=== PATIENT | male | born 1970 | race Caucasian/White ===

== ENCOUNTER → 2021-05-28 03:49 | Outpatient (CLI) | payer BC, SELFPAY ==
[2021-05-28 19:11] LABS: SARS-CoV-2 RNA PCR Negative
== END ==
PROVIDERS: PCP Internal Medicine
DX: R68.89 Other general symptoms and signs (principal); Z20.822 Contact with and (suspected) exposure to COVID-19
CPT/HCPCS: C9803; U0003; U0005

== ENCOUNTER 2021-06-14 13:05 | Emergency (ER) | payer BC, SELFPAY ==
--- NOTE | ~2021-06-14 | US_ITS ---
US venous doppler LE RT DATE: 06/14/2021 14:19 INDICATION: Post surgical right leg pain TECHNIQUE: Real-time and color flow imaging and Doppler analysis of the veins of the right lower extr emity COMPARISON: None FINDINGS: The right greater saphenous vein is patent. There is spontaneous and phasic flow and normal augmentation and color flow signal and normal compression of the right common femoral, deep femoral, femoral and popliteal veins. Thrombus is identified within the posterior tibial and peroneal veins, with lack of compression, cons istent with deep venous thrombosis. IMPRESSION: Deep venous thrombosis of right posterior tibial and peroneal veins Reviewed, dictated and finalized at Location A. Reviewed, dictated and finalized at location B. UTER SYSTEMS HARDWARE ANALYST
[2021-06-14 13:08] VITALS: BP 156/86; PULSE 71; RESP 20; TEMP 36.1; O2SAT 98
[2021-06-14 15:16] VITALS: BP 147/89; PULSE 75; RESP 19; O2SAT 99
--- NOTE | 2021-06-14 16:25 | ED.GENADULT ---
HPI - General Adult General Chief complaint: Extremity Problem,Nontraumatic <Ligia Perez PA-C - Last Filed: 06/14/21 16:33> Stated complaint: leg pain <Ligia Perez PA-C - Last Filed: 06/14/21 16:33> Time Seen by Provider: 06/14/21 13:24 <Ligia Perez PA-C - Last Filed: 06/14/21 16:33> Source: patient <AUSTEN Elder Last Filed: 06/14/21 16:33> Mode of arrival: ambulatory <AUSTEN Elder Last Filed: 06/14/21 16:33> Limitations: no limitations <AUSTEN Elder Last Filed: 06/14/21 16:33> History of Present Illness HPI narrative: Patient is a 50-year-old male with chief complaint of 2 days of increased swelling and erythema to the right leg. Patient reports that he had a spinal fusion performed on 05-31-21. He states that he is on pain medications for his back surgery so he does not notice a tremendous amount of pain to right leg. He denies any shortness of breath, chest pain, syncope, or any other symptoms. He denies prior history of DVT or PE. He is not currently on any anticougulants. <Ligia Perez PA-C - Last Filed: 06/14/21 16:33> Related Data Allergies/adverse reactions: Allergies Allergy/AdvReac Type Severity Reaction Status Date / Time vancomycin Allergy Severe Flushing Verified 06/14/21 13:17 <Ligia Perez PA-C - Last Filed: 06/14/21 16:33> Review of Systems Review of Systems: CONSTITUTIONAL: Denies fever, chills, or sweats. EYES: Denies visual changes, redness, or discharge. ENT: Denies rhinorrhea, congestion, sore throat, or otalgia. CARDIOVASCULAR: Denies chest pain, palpitations, or edema. RESPIRATORY: Denies cough or dyspnea. GASTROINTESTINAL: Denies abdominal pain, nausea, vomiting, or diarrhea. GENITOURINARY: Denies dysuria or hematuria. SKIN: Denies rash or itching. MUSCULOSKELETAL: Reports right leg swelling denies back pain, joint pain, or myalgia. NEUROLOGIC: Denies headache, numbness, dizziness, or weakness. PSYCHIATRIC: Denies anxiety or depression. <Ligia Perez PA-C - Last Filed: 06/14/21 16:33> PMFSH Family History Family History: Family History Mother Family history of suicide Father Patient's father is in good health <Ligia Perez PA-C - Last Filed: 06/14/21 16:33> Social History Social History: Social History Smoking status: Never smoker Tobacco type: cigarettes Second hand tobacco smoke exposure: Yes Alcohol intake: current Alcohol use details: Social <Ligia Perez PA-C - Last Filed: 06/14/21 16:33> Exam Narrative: GENERAL: Well-appearing, well-nourished. HEAD: Normocephalic, atraumatic. EYES: PERRLA and EOMI. NECK: Supple. No adenopathy or masses. No vertebral tenderness or loss of ROM. CHEST: Clear to auscultation. No respiratory distress. No wheezes rales or rhonchi HEART: Regular rate and rhythm. Normal peripheral pulses. EXTREMITIES: Swelling and erythema to right calf with tightness- suspect DVT. Patient ROM intact. Pulses intact. SKIN: Warm, dry, no rash. NEURO: No focal deficits. Alert and oriented x3. PSYCH: Normal mood and affect. <Ligia Perez PA-C - Last Filed: 06/14/21 16:33> Course Vital Signs Vital signs: Vital Signs Temperature 96.9 F L 06/14/21 13:08 Pulse Rate 71 06/14/21 13:08 Respiratory Rate 20 06/14/21 13:08 Blood Pressure 156/86 H 06/14/21 13:08 Pulse Oximetry 98 06/14/21 13:08 Temperature 96.9 F L 06/14/21 13:08 Pulse Rate 75 06/14/21 15:16 Respiratory Rate 19 06/14/21 15:16 Blood Pressure 147/89 H 12/23/21 15:16 Pulse Oximetry 99 06/14/21 15:16 <Ligia Perez PA-C - Last Filed: 06/14/21 16:33> Medical Decision Making MDM Narrative Medical decision making narrative: Patient has a DVT noted on Doppler. Consult with Dr. Peng patient's PCP to to inform him of p
== END 2021-06-14 16:10 | disposition home or self-care (01) ==
PROVIDERS: Emergency Provider General Practice; PCP Internal Medicine
DX: I82.451 Acute embolism and thrombosis of right peroneal vein (principal); I82.441 Acute embolism and thrombosis of right tibial vein; Z98.890 Other specified postprocedural states; Z77.22 Contact with and (suspected) exposure to environmental tobacco smoke (acute) (chronic); Z98.1 Arthrodesis status
CPT/HCPCS: 93971; 99284

== ENCOUNTER → 2021-08-04 10:13 | Outpatient (CLI) | payer BC, SELFPAY ==
--- NOTE | ~2021-08-04 | US_ITS ---
EXAMINATION: US venous doppler LE RT DATE: 08/04/2021 10:46 INDICATION: Right lower limb swelling. Acute embolism and thrombosis of unspecified deep vein. TECHNIQUE: Grayscale ultrasound images without and with compression and Doppler ultrasound images of the right lower extremity veins were obtained. COMPARISON: Ultrasound 06/14/2021 FINDINGS: The visualized portions of right common femoral vein, profunda (deep) femoral vein, femoral vein, pop liteal vein, and greater saphenous vein outflow are patent. There is thrombus in right posterior tibi al and peroneal veins. IMPRESSION: 1. Deep vein thrombosis again seen involving right posterior tibial and peroneal veins. Reviewed, dictated and finalized at location E. ER WAX BALL IMPRESSION: 1. Deep vein thrombosis again seen involving right posterior tibial and perone al veins.
== END ==
PROVIDERS: PCP Internal Medicine; Visit Provider Nurse Practitioner
DX: I82.401 Acute embolism and thrombosis of unspecified deep veins of right lower extremity (principal)
CPT/HCPCS: 93971

== ENCOUNTER → 2021-09-19 08:02 | Outpatient (CLI) | payer BC, SELFPAY ==
[2021-09-19 12:52] LABS: Influenza A QL RT-PCR Negative (Negative); Influenza B QL RT-PCR Negative (Negative); SARS-CoV-2 RNA PCR Negative
== END ==
PROVIDERS: PCP Internal Medicine; Visit Provider Internal Medicine
DX: R68.89 Other general symptoms and signs (principal); Z20.822 Contact with and (suspected) exposure to COVID-19
CPT/HCPCS: 87502; C9803; U0003; U0005

== ENCOUNTER → 2021-10-27 07:21 | Outpatient (CLI) | payer BC, SELFPAY ==
--- NOTE | ~2021-10-27 | US_ITS ---
EXAMINATION: US venous doppler LE RT DATE: 10/27/2021 07:58 INDICATION: Acute embolism and thrombosis of unspecified deep vein TECHNIQUE: Reardon scale images without and with compression and Doppler images of the right lower extre mity veins were obtained. COMPARISON: 08/04/2021 FINDINGS: There is chronic thrombosis of the posterior tibial vein The right common femoral vein, pro miguelina femoral vein, femoral vein, popliteal vein, peroneal trunk, and greater saphenous vein are hair nt. IMPRESSION: 1. 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 Reviewed, dictated and finalized at location A. IMPRESSION: 1. Chronic thrombosis of the posterior tibial vein, otherwise patent right lowe r extremity veins.
== END ==
PROVIDERS: PCP Internal Medicine; Visit Provider Internal Medicine
DX: I82.541 Chronic embolism and thrombosis of right tibial vein (principal)
CPT/HCPCS: 93971

== ENCOUNTER 2021-12-21 00:40 | Day surgery (SDC) | payer BC, SELFPAY ==
[2021-12-14 15:53] VITALS: BMI 25.3
[2021-12-21 10:34] VITALS: BP 150/67; PULSE 56; RESP 16; TEMP 36.4; O2SAT 98; BMI 25.8
--- NOTE | 2021-12-21 10:38 | PM.HPGS ---
History of Present Illness History of Present Illness Consent: Risks, benefits, and alternatives have been discussed and questions answered. Patient agrees to proceed with procedure. Chief complaint: GERD, Crohns Disease Narrative: Joey Mejia is a 51 year old male with h/o Crohn's [place] [address] Bhatti with normal TI, bx showed colitis possible ischemic but on delzicol, sometimes with diarrhea but no recent change. Also GERD on protonix. Last colonoscopy in 2004 Review of Systems Constitutional: Constitutional: Denies headache(s) and Denies weakness Eyes: Eyes: Denies blurry vision ENT: Reports Normal hearing present, Denies headache(s) and Denies neck pain Cardiovascular: Cardiovascular: Denies chest pain and Denies dyspnea Respiratory: Respiratory: Denies dyspnea Gastrointestinal: Gastrointestinal: Reports no additional gastrointestinal complaints Genitourinary: Genitourinary: Denies dysuria Musculoskeletal: Musculoskeletal: Denies neck pain Integumentary/Breasts: Skin/Breast: Denies dry skin Neurologic: Reports Normal hearing present, Denies headache(s) and Denies weakness Psychiatric: Psychiatric: Denies anxiety Endocrine: Endocrine: Denies change in body appearance Hematologic/Lymphatic: Hematologic/Lymphatic: Denies easy bleeding Allergic/Immunologic: Allergic/Immunologic: Denies urticaria PMFSH Surgical History Surgical History (Updated 10/02/21 @ 14:01 by Karla Borden) H/O Spinal surgery (~2004) Tumor removed from the spine. Previous back surgery fusion of the back Family History Family History Mother Family history of suicide Father Patient's father is in good health Social History Social History Smoking status: Never smoker Tobacco type: cigarettes Second hand tobacco smoke exposure: Yes Alcohol intake: current Alcohol use details: Social Substance use: never Substance use type: does not use Living arrangements: with family Spiritual care concerns: No Meds Home Medications and Allergies Home Medications Medication Instructions Recorded Confirmed Type mometasone 0.1 % topical cream 1 applic topical DAILY #45 grams 01/22/21 12/21/21 Rx mesalamine 400 mg capsule (with 1,200 mg PO BID #540 ea 08/13/21 12/21/21 Rx delayed release tablets inside) (Delzicol) pantoprazole 40 mg tablet,delayed 40 mg PO BID #180 tabs 10/19/21 12/21/21 Rx release rivaroxaban 20 mg tablet (Xarelto) 20 mg PO DAILY #30 tabs 10/30/21 12/21/21 Rx epinephrine 0.3 mg/0.3 mL 0.3 mg IM ONCE PRN Allergic 12/14/21 12/21/21 History injection, auto-injector (EpiPen) Reaction Allergies Allergy/AdvReac Type Severity Reaction Status Date / Time cayenne Allergy Severe Hives Verified 12/21/21 10:32 Poultry Allergy Severe Hives Verified 12/21/21 10:32 Vital Signs Vital Signs - 24 hr 12/21/21 10:34 Temperature 97.6 F Pulse Rate 56 L Respiratory Rate 16 Blood Pressure 150/67 H Pulse Oximetry 98 Oxygen Delivery Room Air Exam Const: General: comfortable and no acute distress HENMT: General nose exam: Normal nares present Eyes: General: appearance normal, both eyes and all related structures Neck: Neck: no JVD Resp: Auscultation: clear to auscultation bilaterally Cardio: Rate: regular rate Rhythm: regular rhythm GI: Inspection: non-distended GI Palp: Yes Soft to palpation Skin: General skin exam: normal color Neuro: General: gait normal Speech: normal speech Extrem: General: normal to inspection Psych: Mental Status: mental status grossly normal Assessment and Plan Assessment and plan (1) Crohn's disease of large intestine with complication: Code(s): K50.119 - Crohn's disease of large intestine with unspecified complications Status: Acute Assessment and Plan: colonoscopy with bx on mesal
--- NOTE | 2021-12-21 10:41 | P.PNAN_ITS ---
Anes - Initial Pre Proc Eval Procedure: Operation Date: 12/21/21 12:30 Proposed Procedures p Esophagogastroduodenoscopy & Colonoscopy - Garcia Muñoz MD Date/Time: 12/21/21 10:41 Surgeon: Garcia Muñoz MD Pre Op Diagnosis: GERD, Crohns Disease Patient Data Age: 51 Gender: M Height: 1.65 m Weight: 70.4 kg Last Vital Signs Temp 97.6 F 12/21/21 10:34 Pulse 56 L 12/21/21 10:34 Resp 16 12/21/21 10:34 BP 150/67 H 12/21/21 10:34 Pulse Ox 98 12/21/21 10:34 O2 Del Method Room Air 12/21/21 10:34 Allergies Allergy/AdvReac Type Severity Reaction Status Date / Time cayenne Allergy Severe Hives Verified 12/21/21 10:32 Poultry Allergy Severe Hives Verified 12/21/21 10:32 Home Medications Medication Instructions Recorded Confirmed Type mometasone 0.1 % topical cream 1 applic topical DAILY #45 grams 01/22/21 12/21/21 Rx mesalamine 400 mg capsule (with 1,200 mg PO BID #540 ea 08/13/21 12/21/21 Rx delayed release tablets inside) (Delzicol) pantoprazole 40 mg tablet,delayed 40 mg PO BID #180 tabs 10/19/21 12/21/21 Rx release rivaroxaban 20 mg tablet (Xarelto) 20 mg PO DAILY #30 tabs 10/30/21 12/21/21 Rx epinephrine 0.3 mg/0.3 mL 0.3 mg IM ONCE PRN Allergic 12/14/21 12/21/21 History injection, auto-injector (EpiPen) Reaction Patient hx anesthesia problems: none Family hx anesthesia problems: none Results Review: All pre-operative results and documents have been reviewed as part of the pre- operative evaluation. 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 Previous back surgery fusion of the back Family History Family History Mother Family history of suicide Father Patient's father is in good health Social History Social History Smoking status: Never smoker Tobacco type: cigarettes Second hand tobacco smoke exposure: Yes Alcohol intake: current Alcohol use details: Social Substance use: never Substance use type: does not use Living arrangements: with family Spiritual care concerns: No Anes - Eval Final PreProcedure Day of Procedure 12/21/21 10:41 Patient weight: normal Heart: regular rate and rhythm Lungs: clear to auscultation Airway: Mallampati scale class II Neurological: alert and oriented Last oral intake: >/= 8 hours ASA classification: II Emergent: no Anesthetic plan: proceed Anesthesia type and monitoring: general GIVS and standard monitoring Results Review: All pre-operative results and documents have been reviewed as part of the pre- operative evaluation. Informed Consent: The patient's anesthetic plan and its attendant risks and benefits were discussed with the patient/family/POA. Questions were solicited and answers provided to the satisfaction of the patient/family/POA.
[2021-12-21] MEDS: LACTATED RINGERS 1,000 ML 150 ML IV CONT (10:43)
[2021-12-21 11:14] VITALS: BP 132/80; PULSE 50; RESP 17; O2SAT 100
[2021-12-21 11:24] VITALS: BP 142/92; PULSE 56; RESP 17; O2SAT 100
[2021-12-21 11:34] VITALS: BP 143/93; PULSE 54; RESP 14; O2SAT 100
== END 2021-12-21 11:42 | disposition home or self-care (01) ==
PROVIDERS: PCP Internal Medicine; Visit Provider Internal Medicine Gastroenterology
PROC: 0DJ08ZZ Inspection of Upper Intestinal Tract, Via Natural or Artificial Opening Endoscopic (ICD-10-PCS; CPT 43235; principal; 2021-12-21 12:30)
DX: Z12.11 Encounter for screening for malignant neoplasm of colon (principal); D12.5 Benign neoplasm of sigmoid colon; K50.119 Crohn's disease of large intestine with unspecified complications; K64.8 Other hemorrhoids; K57.30 Diverticulosis of large intestine without perforation or abscess without bleeding; K21.9 Gastro-esophageal reflux disease without esophagitis; Z79.82 Long term (current) use of aspirin; Z98.1 Arthrodesis status
CPT/HCPCS: 45385; 45380; 43239; 88305; J2001; J2704; J7120

== ENCOUNTER 2022-02-09 07:35 | Outpatient (CLI) | payer BC, SELFPAY ==
--- NOTE | ~2022-02-09 | MR_ITS ---
EXAMINATION: MR hip RT wo con DATE: 02/09/2022 08:27 INDICATION: Right hip pain. TECHNIQUE: Magnetic resonance imaging (MRI) of the right hip was performed without intravenous contra st. COMPARISON: Right hip radiographs 10/24/21 FINDINGS: Bones/cartilage: There are changes of anterior and posterior fusion procedures in lumbar spine. There is decreased fem oral head/neck offset bilaterally, which may be seen with femoral acetabular impingement. Small field -of-view images of right hip demonstrate partial-thickness cartilage loss superiorly. Labrum: There is a tear of the right acetabular labrum. Fluid: There is no hip joint effusion. There is mild bilateral trochanteric bursitis. Soft tissues: There is mild bilateral gluteus minimus tendinopathy. The gluteus medius tendons are normal. There is mild tendinopathy of the hamstring origins. The iliopsoas tendons are normal. There is a right ingui nal hernia containing fat. The prostate is mildly enlarged. IMPRESSION: 1. Mild right hip chondrosis. 2. Tear of right acetabular labrum. 3. Right inguinal hernia containing fat. Reviewed, dictated and finalized at location A.
== END 2022-02-09 07:36 | disposition home or self-care (01) ==
PROVIDERS: PCP Internal Medicine; Visit Provider Orthopaedic Surgery
DX: M70.61 Trochanteric bursitis, right hip (principal); K40.90 Unilateral inguinal hernia, without obstruction or gangrene, not specified as recurrent; S73.191A Other sprain of right hip, initial encounter; X58.XXXA Exposure to other specified factors, initial encounter
CPT/HCPCS: 73721

== ENCOUNTER 2022-05-20 16:06 | Outpatient (CLI) | payer BC, SELFPAY ==
--- NOTE | ~2022-05-20 | US_ITS ---
EXAMINATION:US venous doppler LE RT INDICATION:Follow-up DVT seen on prior study. TECHNIQUE: Multiple grayscale, color flow and Doppler images of the right lower extremity deep venous systems were obtained and reviewed. COMPARISON:Ultrasound dated 10/27/2021 FINDINGS: The common femoral, superficial femoral and popliteal veins demonstrate normal respiratory variation, augmentation and compressibility. Color flow is also seen within the posterior tibial, pe roneal, greater saphenous and profunda veins. IMPRESSION: 1: No lower extremity deep venous thrombosis. Reviewed, dictated and finalized at location A. ANALYST
== END 2022-05-20 16:07 | disposition home or self-care (01) ==
LOC: ANHIMG 16:11
PROVIDERS: PCP Internal Medicine; Visit Provider Internal Medicine
DX: I82.401 Acute embolism and thrombosis of unspecified deep veins of right lower extremity (principal)
CPT/HCPCS: 93971

== ENCOUNTER 2024-02-26 12:22 | Outpatient (CLI) | payer OTHER, SELFPAY ==
--- NOTE | ~2024-02-26 | XR_ITS ---
EXAMINATION: XR abdomen/kub 1V DATE: 02/26/2024 12:38 INDICATION: Bilateral abdominal pain. TECHNIQUE: A supine view of the abdomen on 2 radiographs was obtained. COMPARISON: Abdomen radiographs 02/05/19 FINDINGS: There are no dilated loops of bowel. There are phleboliths in the pelvis. There are changes of anterior and posterior fusion procedures in lumbosacral spine. IMPRESSION: 1. No visible urolithiasis. Reviewed, dictated and finalized at location A. IMPRESSION: 1. No visible urolithiasis.
== END 2024-02-26 12:23 | disposition home or self-care (01) ==
PROVIDERS: PCP Nurse Practitioner Family; Visit Provider Nurse Practitioner Family
DX: R10.9 Unspecified abdominal pain (principal); Z87.442 Personal history of urinary calculi
CPT/HCPCS: 74018

== ENCOUNTER 2024-12-10 12:45 | Outpatient (CLI) | payer OTHER, SELFPAY ==
--- NOTE | ~2024-12-10 | US_ITS ---
Limited Abdominal Sonogram: Real-time sonographic imaging of the right upper quadrant was performed. Clinical History: Abnormal liver enzyme levels Findings: The liver appears echogenic, with no evidence of mass lesion or bile duct dilatation. Main portal vein demonstrates normal direction of flow. The gallbladder is well distended, and appears no rmal with no evidence of gallstone or wall thickening. The common bile duct measures 3 mm. The visua lized pancreas, aorta, and IVC are unremarkable. Right kidney unremarkable. Impression: Diffuse fatty infiltration of the liver. Reviewed, dictated and finalized at location M. Impression: Diffuse fatty infiltration of the liver.
== END 2024-12-10 12:46 | disposition home or self-care (01) ==
LOC: MICIMG 12:47
PROVIDERS: PCP Nurse Practitioner Family; Visit Provider Nurse Practitioner Family
DX: R74.01 Elevation of levels of liver transaminase levels (principal); K76.0 Fatty (change of) liver, not elsewhere classified
CPT/HCPCS: 76705

== ENCOUNTER 2025-05-18 09:43 | Outpatient (CLI) | payer OTHER, SELFPAY ==
--- OUTSIDE RECORDS SUMMARY | 2024-04-27 05:00 | XMS_ITS | Continuity of Care Document ---
Author Organization [facility] [facility] Address [address] [place] [address] Phone Care Team Providers Care Planning Intern Name Role Phone Mona ZAMORA, Robb Unavailable Unavailable Procedures Procedure Date LUMBAR SPINE CT W/O CONTRAST INJ PARAVERT F JNT L/S 1 LEV SURGICAL TRAY Triamcinolone Acetonide Injection, 10mg INJECTION ANESTHETIC AND/OR STERIOD, TRANS EPIDURAL LUMB OR SACRAL,, SINGLE LEVE SURGICAL TRAY LOW OSMOLAR CONTRAST (200 TO 299 MG IODI NE) Triamcinolone Acetonide Injection, 10mg LUMBAR SPINE CT W/O CONTRAST MRI OF NECK, SPINE W/O CONTRAST MRI, LUMBAR SPINE W/O CONTRAST 24 MRI OF NECK, SPINE W/O CONTRAST 022 INJ FOR DISKOGRAPHY, EACH LEVEL; LUMBAR DISKOGRAPHY, LUMBAR, RADIOLOGICAL SUPERV ISION AND INTERPRETATION SURGICAL TRAY LOW OSMOLAR CONTRAST (200 TO 299 MG IODI NE) MRI, LUMBAR SPINE W/O CONTRAST 21 INJ PARAVERT F JNT L/S 1 LEV SURGICAL TRAY DEPO-MEDROL 80MG INJECTION ANESTHETIC AND/OR STERIOD, TRANS EPIDURAL LUMB OR SACRAL,, SINGLE LEVE Mar-31-2021 SURGICAL TRAY LOW OSMOLAR CONTRAST (200 TO 299 MG IODI NE) DEPO-MEDROL 80MG MRI, LUMBAR SPINE W/O CONTRAST LUMBAR SPINE CT W/O CONTRAST INJECTION ANESTHETIC AND/OR STERIOD, TRANS EPIDURAL LUMB OR SACRAL,, SINGLE LEVE SURGICAL TRAY LOW OSMOLAR CONTRAST (200 TO 299 MG IODI NE) DEPO-MEDROL 80MG Advance Directives Directive Yes / No Effective Date File Name No Information Encounters Encounter Description Practice Location Reason(s) For Visit Diagnoses Date Provider Providers Copied on Encounter [facility], [address] [facility], [place], [place], [id number], tel:[phone] [facility] No Information Mona Zamudio. [address] , [place], [place], [id number], [place]. tel:[phone] Referring Provider: Zheng Acevedo, [facility] [facility] [address], [address], [place], [address]. tel:[phone] [facility], [address] [facility], [place], [place], [id number], [place] tel:[phone] [facility] No Information Nancy Griffin. [address] [place], [place], [id number], [place]. tel:[phone] Referring Provider: Raheem Desai, [facility], [place], [address]. tel:[phone] [facility], [address] [facility], [place], [place], [id number], [place] tel:[phone] [facility] No Information Lily Martin. [address] , [place], [place], [id number], [place]. tel:[phone] Referring Provider: [address], [place], [address]. tel:[phone] [facility], [address] [facility], [place], [place], [id number], [place] tel:[phone] [facility] No Information Per Zamudio. [address] [facility], [place], [place], [id number], [place]. tel:[phone] Referring Provider: Raheem Desai, [address], [place], [address]. tel:[phone] [facility], [address] [facility], [place], [place], [id number], [place] tel:[phone] [facility] No Information Lily Martin. [address], [place], [id number], [place]. tel:[phone] Referring Provider: Raheem Desai, [address], [place], [address]. tel:[phone] [facility], [address] [place] [address], [id number], tel:[phone] [facility] No Information Jean-Pierre Timmons. [address], [place], [id number], [place]. tel:[phone] Referring Provider: [address], [place], [address]. tel:[phone] [facility], [address] [place] [address], [id number], [place] tel:[phone] [facility] No Information Nancy Florence [address] [place], [place], [id number], [place]. tel:[phone] Referring Provider: [address], [place], [address]. tel:[phone] [facility], [address] [place] [address], [id number], [place] tel:[phone] [facility] No Information Jean-Pierre Timmons. [address], [place], [id number], [place]. tel:[phone] Referring Provider: [address], [place], [address]. tel:[phone] [facility], [address] [place] [address], [id number], tel:[phone] [facility] No Information Lily Martin. [address], [place], [id number], . tel:[phone] Referring Provider: Raheem Desai, [address], [place], [place], [facility]. tel:[phone] [facility], [address] [place] [address], [id number], tel:[phone] [facility] No Information Jean-Pierre Timmons. [address], [place], [id number], . tel:[phone] Referring Provider: [address], [place], [place], [facility]. tel:[phone] [facility], [address] [place] [address], [id number], tel:[phone] [facility] No Information Nancy Griffin. [address] [place], [place], [address] [place] [address], . tel:[phone] Referring Provider: [address], [place], [facility]. tel:[phone] [employer] [facility], [address] [place] [address], [id number], tel:[phone] [facility] No Information Per Zamudio. [address] [place], [place], [id number], . tel:[phone] Referring Provider: [address], [place], [place], [facility]. tel:[phone] Family History Family Member Type Diagnosis Age At Onset No Information Payers Payer name Insurance type Covered republican ID Authoriza tieverton(s) [facility] [id number] Social History Type Description Quantity Date Captured Comments Sex Male Smoking Status No Information Chief Complaint And Reason For Visit No Information Reason For Referral Reason For Referral No Information History Of Present Illness Encounter Date Complaint History Of Prese nt Illness No Information Functional Status Date Functional Assessmen t No Information Instructions Date Instruction Additional Infor mation No Information Assessments Type Assessment Date No Information Patient Care Teams Name Effective Dates (start - stop) Status Members No Information
--- NOTE | 2025-05-18 10:03 | ECG_ITS ---
Test Date: 2025-05-18 10:20:10 Measurements Intervals [place] Rate: 50 P: 55 CA: 147 QRS: 29 QRSD: 73 T: 53 QT: 436 QTc: 398 Interpretive Statements SINUS BRADYCARDIA No previous ECG available for comparison Electronically Signed On 05-18-2025 13:40:07 FACILITY MAINTENANCE TECHNICIAN by Joe Lobo M.D.
--- OUTSIDE RECORDS SUMMARY | 2025-05-18 10:20 | XMS_ITS | Clinical Summary ---
Author Organization [facility] Address [address] [place] [address] Care Team Providers Care Aquatics Instructor Name Role Phone Gisele Nava NP Primary Care Provider [phone] Allergies Active Allergy Reactions Criticality Noted Date Comments 1 Alpha-Gal Unknown Dairy Tolerance (Ubshsascc-Ocrva-4,3-Galact ose) Rash Medium 04/16/2022 Throat swelling (red man) Vancomycin Unknown 08/23/[address] (PROTONIX) 40 mg EC tablet 04/01/2022 Active EPINEPHrine 0.3 mg/0.3 mL auto-injection syringe INJ 0.3 ML IM ONCE 01/21/2020 Active lisinopriL (PRINIVIL,ZESTRI L) 10 mg tablet 2023 Act abbey meloxicam (MOBIC) 15 mg tablet 01/21/2023 Active mesalamine (APRISO) 0.375 gram 24 hr capsule 2023 Active methocarbamoL (ROBAXIN) 750 mg tabletIndication s:Pseudarthrosis after fusion or arthrodesis Take 1 tablet (750 mg total) by mouth 3 (three) times a day as needed for muscle spasms 90 tablet 11/24/2023 Active Active Problems Problem Noted Date Diagnosed Date Degeneration of cervical intervertebral disc 08/2013 Immunizations Immunization Administration Dates Next Due Influenza, Quadrivalent, Janine l Culture-based MDCK, Preservative Free, Antibiotic Free, Intramuscular 04/16/2017 Influenza, Trivalent, IM (MDV) 04/11/2013 Tdap 12/03/2013,12/09/2008 ZOSTER Recombinant 01/29/2022,11/30/2021 Surgical History Surgery Date Site/Laterality Comments TUMOR REMOVAL 12/20/2004 Schwannoma removal SPINE SURGERY 12/05/2017 Herniated disc surgery SPINAL FUSION 06/03/2019 Bilateral L4-L5 fusion, fusion below L4 on 05/31/2021 FLUORO GUIDED INJECTION HIP RIGHT 04/30/2022 Right Medical History Medical History Date Comments Blood clot in vein Deep vein thrombosis (HCC) Inflammatory bowel disease Kidney stone Gastric reflux Hypertension Rectal bleeding Family History Medical History Relation Name Comments Cancer Brother Kidney disease Brother Cancer Father Heart disease Father Stroke Paternal Grandfather Cancer Sister Relation Name Status Comments Brother Father Paternal Grandfather Sister Social History Tobacco Use Types Packs/Day Years Used Date Smoking Tobacco: Never Smokeless Tobacco: Never Tobacco Cessation:Counseling Given: No AUDIT-C Answer Date Recorded Q1: How often do you have a drink containing alc ohol? Monthly or less 11/24/2023 Q2: How many drinks containi ng alcohol do you have on a typical day when you are drinking? 1 or 2 11/24/2023 Q3: How often do you have si x or more drinks on one occasion? Never 11/24/2023 Sex and Gender Information Value Date Recorded Sex Assigned at Not on file Legal Sex Male 2:09 PM CDT Gender Identity Male 11/18/2023 3:31 PM CDT Sexual Orientation Not on file Occupation Industry Job Start Date Job End Date Teacher Not on file Not on file Not on file Last Filed Vital Signs Vital Sign Reading Time Taken Comments Blood Pressure 182/99 11/24/2023 9:15 AM CDT Pulse 51 11/24/2023 9:15 AM CDT Temperature - - Respiratory Rate - - Oxygen Saturation - - Inhaled Oxygen Concentration - - Weight 73.5 kg (162 lb) 11/24/2023 9:15 AM CDT Height 165.1 cm (5' 5) 11/24/2023 9:15 AM CDT Body Mass Index 26.96 11/24/2023 9:15 AM CDT Plan of Treatment Health Maintenance Due Date Last Done Comments Colon Cancer Screening-Colonoscopy 1971 Depression Screening 1971 Hepatitis C Screening 1971 Prostate Cancer Screening-PSA 1971 Hepatitis B Screening 1989 Regular Well Visit/Exam 18-64 1989 DTaP/Tdap/Td Vaccine (3 - Td or Tdap) 12/04/2023 12/03/2013, 12/09/2008 Covid-19 Vaccine (4 - 2024-2 6 season) 2025 08/24/2021, 09/02/2020, 08/12/2020 Influenza Vaccine (#1) 2025 7, 04/11/2013 Zoster Vaccine Completed 01/29/2022, 11/30/2021 Pneumococcal vaccine <65 Aged Out No longer eligible based on patient's age to complete this topic Insurance [facility] CHO[facility] PLUS [facility] CHO[facility] PLUS Care Teams Aquatics Instructor Relationship Specialty Start Date End Date WinterGisele NP [address] [address] [address] PCP - General Nurse Practitioner 11/24/23
--- OUTSIDE RECORDS SUMMARY | 2025-05-18 10:20 | XMS_ITS | Clinical Summary ---
Author Organization [facility] Address [address] [place] [id number] Care Team Providers Care Eyeglass Lens Cutter Name Role Phone Raheem Denton MD Primary Care Provider [phone] Social History Tobacco Use Types Packs/Day Years Used Date Smoking Tobacco: Never Assessed Sex and Gender Information Value Date Recorded Sex Assigned at Not on file Legal Sex Male 8:17 PM CDT Gender Identity Not on file Sexual Orientation Not on file Plan of Treatment Health Maintenance Due Date Last Done Comments Colorectal Cancer Screening Colonoscopy (10 Years) 1971 Annual Physical 1974 Hepatitis C 1989 DTaP, Tdap and Td Vaccines ( 1 - Tdap) 1990 Hepatitis B Vaccines (1 of 3 - 19+ 3-dose series) 1990 Pneumococcal Vaccine: 50+ Ye ars (1 of 1 - PCV) 2021 Zoster Vaccines (1 of 2) 2021 COVID-19 Vaccine (1 - 2024-2 6 season) 2025 Influenza Adult (#1) 2025 Hepatitis A Vaccines Aged Out No long er eligible based on patient's age to complete this topic Meningococcal B Vaccine Aged Out No l onger eligible based on patient's age to complete this topic Meningococcal Vaccine Aged Out No nayan dee dee eligible based on patient's age to complete this topic RSV Immunizations Under 20 Months Aged Out No longer eligible based on patient's age to complete this topic Care Teams Eyeglass Lens Cutter Relationship Specialty Start Date End Date Raheem Denton MD [address] [facility] [address] [place] [id number] PCP - General 06/29/10
--- OUTSIDE RECORDS SUMMARY | 2025-05-18 10:20 | XMS_ITS | Clinical Summary ---
Author Organization [facility] [employer] Address [address] [place] [address] Care Team Providers Care Commercial Maintenance Technician Name Role Phone Unavailable Primary Care Provider Unavailabl e Source Comments [facility],non-owned Affiliates and Associated Physician Practices is amultiple site organization consisting of ambulatory clinics and hospital sitesin [place], [place], [place] and [place]. This disclosure is being madepursuant to the Care Everywhere program and may not contain all information available regarding this patient. Last updated 18.[facility] [employer] Allergies Active Allergy Reactions Criticality Noted Date Comments Vancomycin 08/23/2013 Medications * Be aware that medications may not be up to date on this document. Alwaysverify current medications with the patient. Esomeprazole Magnesium (NEXIUM PO) Active Mesalamine (DELZICOL PO) Active EPINEPHrine (EPIPEN) 0.3 MG/0.3ML auto-injector pen INJ 0.3 ML IM ONCE 01/21/2020 Active esomeprazole (NEXIUM) 40 MG capsule 09/22/[address] (DELZICOL) 400 MG capsule Take 1,200 mg by mouth 2 times daily 11/30/2020 Active Active Problems Problem Noted Date Diagnosed Date Degeneration of cervical intervertebral disc 08/2013 Social History Tobacco Use Types Packs/Day Years Used Date Smoking Tobacco: Never Smokeless Tobacco: Never Alcohol Use Standard Drinks/Week Comments No 0 (1 standard drink = 0.6 oz pur e alcohol) Sex and Gender Information Value Date Recorded Sex Assigned at Not on file Legal Sex Male 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 Gender Identity Not on file Sexual Orientation Not on file Last Filed Vital Signs Vital Sign Reading Time Taken Comments Blood Pressure 149/80 01/17/2021 9:24 AM CDT Pulse 57 01/17/2021 9:24 AM CDT Temperature 36.7 C (98.1 F) 01/17/2021 9:24 AM CDT Respiratory Rate 17 01/17/2021 9:24 AM CDT Oxygen Saturation 100% 01/17/2021 9:24 AM CDT Inhaled Oxygen Concentration - - Weight 65.8 kg (145 lb) 10/23/2017 4:44 PM CDT Height 165.1 cm (5' 5) 10/23/2017 4:44 PM CDT Body Mass Index 24.13 10/23/2017 4:44 PM CDT Plan of Treatment Health Maintenance Due Date Last Done Comments COLOGUARD (AGES 45-75) - COL ON CA SCREENING 1971 COLON MONITORING 1971 COLONOSCOPY - COLON CA SCREENING 1971 CT COLONOGRAPHY - COLON CA SCREENING 1971 Colorectal Cancer Screening 1971 FIT - COLON CA SCREENING 1971 FLEX SIG - COLON CA SCREENING 1971 LIPID TESTING 1971 HIV SCREENING 1986 HEPATITIS C SCREENING 06/18/1989 DTAP/TDAP/TD VACCINES (1 - Tdap) 1990 HEPATITIS B VACCINE (1 of 3 - 19+ 3-dose series) 1990 PNEUMOCOCCAL VACCINE 50+ (1 of 1 - PCV) 2021 ZOSTER VACCINE (1 of 2) 2021 DEPRESSION SCREENING 2024 COVID-19 VACCINE (1 - 2024-2 6 season) 2025 INFLUENZA VACCINE (#1) 2025 HIB VACCINE Aged Out No longer eligi ble based on patient's age to complete this topic HPV VACCINE Aged Out No longer eligi ble based on patient's age to complete this topic MENINGOCOCCAL (Group B) VACC INE SHARED DECISION-MAKING Aged Out No longer eligibl e based on patient's age to complete this topic MENINGOCOCCAL GROUPS A/C/Y/W VACCINE Aged Out No longer eligible b ased on patient's age to complete this topic Insurance [employer] Member Subscriber Plan / Payer (Ef fective 2012-Present) Name:Noé Mejia Relation to Subscriber:Self Name:Noé Mejia Payer ID:[id number] (NAIC) Type:PPO Address: [place] [phone] [employer]
== END 2025-05-18 09:44 | disposition home or self-care (01) ==
PROVIDERS: PCP Nurse Practitioner Family; Referring Provider Orthopaedic Surgery; Visit Provider Nurse Practitioner Family
DX: R73.03 Prediabetes (principal); Z01.818 Encounter for other preprocedural examination; I10 Essential (primary) hypertension; E78.5 Hyperlipidemia, unspecified; R00.1 Bradycardia, unspecified
CPT/HCPCS: 93005